=== PATIENT | male | born 1940 | race Caucasian/White ===

== ENCOUNTER → 2022-06-05 16:13 | Outpatient (CLI) | payer OTHER, SELFPAY | PROVIDERS: Visit Provider Specialist | DX: N40.1 Benign prostatic hyperplasia with lower urinary tract symptoms (principal); N13.8 Other obstructive and reflux uropathy; N39.41 Urge incontinence; R97.20 Elevated prostate specific antigen [PSA]; N43.3 Hydrocele, unspecified; N48.1 Balanitis; K42.9 Umbilical hernia without obstruction or gangrene | CPT/HCPCS: 81002; 87086; 99215 ==

== ENCOUNTER → 2024-05-05 13:03 | Outpatient (CLI) | payer OTHER, SELFPAY | PROVIDERS: Visit Provider Urology | DX: N39.41 Urge incontinence (principal); N40.1 Benign prostatic hyperplasia with lower urinary tract symptoms; N13.8 Other obstructive and reflux uropathy; R97.20 Elevated prostate specific antigen [PSA] | CPT/HCPCS: 51741; 51798; 81002; 87086; 99213 ==